=== PATIENT | male | born 1960 | race Caucasian/White ===

== ENCOUNTER 2019-03-25 10:10 | Day surgery (SDC) | payer OTHER, SELFPAY ==
[2019-03-18 14:23] VITALS: BMI 44.4
[2019-03-25] VITALS (10 sets, daily range): BP systolic 119–169; BP diastolic 50–85; PULSE 78–90; RESP 15–20; TEMP 36–36.8; O2SAT 91–96; BMI 46.1
--- NOTE | 2019-03-25 11:00 | PM.PREOP ---
Pre-operative Note Interval Note History & Physical reviewed/Exam performed by Physician: Yes Changes to H&P: No
--- NOTE | 2019-03-25 13:00 | PM.OP.1 ---
Operative Date/Time/Diagnoses Date of procedure: 03/25/19 Time of procedure: 15:03 Pre-op diagnosis: Impingement syndrome with partial-thickness rotator cuff tear right shoulder Subluxation and partial tearing of the biceps tendon right shoulder Post-op diagnosis: same Procedure & Clinicians Procedure: Arthroscopic subacromial decompression right shoulder Arthroscopic biceps tenotomy right shoulder Same procedure as scheduled: Yes Indications: The patient presents today for right shoulder arthroscopy. The planned procedure is subacromial decompression and biceps tenodesis versus tenotomy. Rotator cuff repair or other procedures may be performed as indicated by the intraoperative findings. The nature of the procedure including the risks and benefits, alternatives, postoperative course and expected outcome were discussed and all questions answered. Consent was obtained. Operative site confirmed and marked. Surgeon: Felipe Reis System Programmer: Clair Saez Anesthesia Type: General, Peripheral nerve block and Local Operative Notes Findings: Arthroscopic evaluation revealed some partial-thickness tearing on the articular side of the rotator cuff but no significant full-thickness tears that required repair. There was tearing and dislocation of the biceps tendon. A biceps tenotomy was performed. There is also some milder tearing of the anterior labrum which was debrided. The majority the labrum was intact and stable. There is just mild chondromalacia. There was some partial-thickness tearing of the superior border of the subscapularis tendon. The subacromial space was quite tight to begin the procedure was significant bursitis. A complete bursectomy in standard acromioplasty was performed which nicely decompressed the area. The AC joint was not prominent into the subacromial space. The subacromial space was well decompressed at the end of the procedure. Closure Type: primary Specimen(s): none sent Estimated Blood Loss (mL): 10 Blood products transfused: none Procedure in detail: The patient was taken the operative suite and placed under general anesthesia with a scalene block by Anesthesia. He was given prophylactic antibodies prior to surgery. The patient was then positioned in the lateral decubitus position on a beanbag and with an axillary roll. The arm was suspended with 10 pounds of weight. The acromion and coracoid as well as the expected portal sites were all marked. The shoulder was then injected with 20 mL of 1% lidocaine with epinephrine. The arm was then prepped and draped in usual sterile fashion. The joint was then filled with 20 mL of saline through the proposed posterior portal site. The posterior portal was then established and the scope placed bluntly into the glenohumeral joint. An anterior portal was then established from an outside in technique with a spinal needle. The glenohumeral joint was then inspected (see findings above). The scope was then switched to the subacromial space. A standard bursectomy and anterior/lateral chondroplasty was performed with a shaver and bur. The subacromial space was well decompressed. The arthroscopy was then completed and the shoulder drained. The portal sites were closed with interrupted 3-0 nylon suture. Subacromial space was filled with 15 mL of 0.5% ropivacaine and 4 of morphine. Sterile gauze dressings were then applied. The shoulder was placed into a sling. The patient tolerated the procedure well and was returned recovery room in good condition. Complications: none Post-operative Condition: stable Disposition: same day surgery Plan for aftercare: Patient will use a sling for comfort. May slowly progress activity as tolerated. Discharge to home. Follow-up in 2 weeks.
[2019-03-25] MEDS: MIDAZOLAM 2 MG/2 ML VIAL IV (13:15)
[2019-03-25] MEDS: LACTATED RINGERS 1,000 ML 42 ML IV (13:28)
--- NOTE | 2019-03-25 13:29 | SUR.PREOP ---
Block start time [1315] . Monitoring initiated and maintained throughout procedure. Oxygen and medications given per anesthesiologist instructions. Patient remained stable throughout procedure, no adverse reactions noted. Block end time [1324].
[2019-03-25] MEDS: CEFAZOLIN 2 GM/100 ML FROZ.PIGGY IV (13:44)
--- NOTE | 2019-03-25 14:18 | SUR.OPER ---
Lateral on padded OR bed with benjamin bag positioner, head on pillow, gel axillary roll in place, bottom leg bent with gel pad under knee to foot, upper leg straight and supported with pillows. Operative arm secured in shoulder positioning suspension device. non-operative arm secured on padded arm board. Safety belt at hip, tape over blanket securing lower legs.
[2019-03-25] MEDS: ROPIVACAINE 0.5% PF 5 MG/ML 20ML VIAL 10 ML INJ (14:27)
[2019-03-25] MEDS: SODIUM CHLORIDE IRRIG SOLUTION 3,000 ML, EPINEPHrine 1 MG IRR ×2 (14:32→14:43)
[2019-03-25] MEDS: OXYCODONE/ACETAMINOPHEN 5/325 TABLET 1 TAB PO ×2 (15:32→16:38)
[2019-03-25] MEDS: fentaNYL 100 MCG/2 ML INJ 50 MCG IV ×2 (15:47→16:00)
== END 2019-03-25 17:19 | disposition home or self-care (01) ==
PROVIDERS: PCP Family Medicine; Visit Provider Orthopaedic Surgery
PROC: (CPT 29805; principal; 2019-03-25 12:15)
DX: M75.41 Impingement syndrome of right shoulder (principal); S46.011A Strain of muscle(s) and tendon(s) of the rotator cuff of right shoulder, initial encounter; G89.18 Other acute postprocedural pain; W01.198A Fall on same level from slipping, tripping and stumbling with subsequent striking against other object, initial encounter; Y93.H3 Activity, building and construction; M94.211 Chondromalacia, right shoulder
CPT/HCPCS: 29823; 29826; 64415; J0171; J0690; J1100; J2250; J2405; J2704; J3010

== ENCOUNTER → 2019-10-12 14:02 | Outpatient (CLI) | payer OTHER, SELFPAY ==
[2019-10-13 16:08] LABS: COVID19 Sendout NOT DETECTED (Not Detect)
== END ==
PROVIDERS: PCP Family Medicine; Visit Provider Registered Nurse
DX: Z01.812 Encounter for preprocedural laboratory examination (principal)
CPT/HCPCS: 87635

== ENCOUNTER 2019-10-14 06:37 | Day surgery (SDC) | payer OTHER, SELFPAY ==
[2019-10-12 12:49] VITALS: BMI 43.6
[2019-10-14] VITALS (7 sets, daily range): BP systolic 122–157; BP diastolic 76–92; PULSE 78–93; RESP 15–20; TEMP 36.2–36.9; O2SAT 94–99; BMI 43.6
--- NOTE | 2019-10-14 06:54 | PM.PREOP ---
Pre-operative Note COVID-19 COVID-19 status: Negative Interval Note History & Physical reviewed/Exam performed by Physician: Yes Changes to H&P: No
--- NOTE | 2019-10-14 06:55 | PM.OP.1 ---
Operative Date/Time/Diagnoses Date of procedure: 10/14/19 Pre-op diagnosis: Impingement syndrome and partial-thickness rotator cuff tear left shoulder Post-op diagnosis: same Procedure & Clinicians Procedure: Arthroscopic subacromial decompression left shoulder Same procedure as scheduled: Yes Indications: The patient presents today for left shoulder arthroscopy with planned subacromial decompression and other procedures as indicated by the operative findings. The nature of the procedure including the risks and benefits, alternatives, postoperative course and expected outcome were discussed and all questions answered. Consent was obtained. Operative site confirmed and marked. Surgeon: Felipe Reis Assembly Line Machine Operator: Sav De Souza Anesthesia Type: General, Peripheral nerve block and Local Operative Notes Findings: Examination anesthesia was unremarkable. Arthroscopic evaluation of glenohumeral joint revealed mild chondromalacia. There was some inferior spurring off the humeral head. The biceps tendon was intact and appeared pristine. There was some tearing of the inferior labrum which was debrided. The anterior labrum appeared detached but this was primarily little redundant tissue. The labrum was not torn in this location and the biceps anchor was stable. There is no evidence of any significant articular sided rotator cuff tearing. Arthroscopic evaluation of the subacromial space revealed severe bursitis. There is moderate prominence of the anterior acromion with some spurring. A complete bursectomy in standard acromioplasty was performed. This nicely decompressed the space. There was some slight diffuse fraying of the rotator cuff but no evidence of any significant bursal sided rotator cuff tear. The distal clavicle was not prominent into the joint and the AC joint capsule was intact. Closure Type: primary Specimen(s): none sent Estimated Blood Loss (mL): 5 Blood products transfused: none Procedure in detail: The patient was taken the operative suite and placed under general anesthesia with a scalene block and given prophylactic antibodies prior to surgery. The patient was then positioned in the lateral decubitus position on a beanbag and with an axillary roll. The arm was suspended with 10 pounds of weight. The acromion and coracoid as well as the expected portal sites were all marked. The shoulder was then injected with 20 mL of 1% lidocaine with epinephrine. The arm was then prepped and draped in usual sterile fashion. The joint was then filled with 20 mL of saline through the proposed posterior portal site. The posterior portal was then established and the scope placed bluntly into the glenohumeral joint. An anterior portal was then established from an outside in technique with a spinal needle. The glenohumeral joint was then inspected (see findings above). The scope was then switched to the subacromial space. A standard bursectomy and anterior/lateral chondroplasty was performed with a shaver and bur. The subacromial space was well decompressed. The arthroscopy was then completed and the shoulder drained. The portal sites were closed with interrupted 3-0 nylon suture. Subacromial space was filled with 20 mL of 0.5% ropivacaine and 4 of morphine. Sterile gauze dressings were then applied. The shoulder was placed into a sling. The patient tolerated the procedure well and was returned recovery room in good condition. Complications: none Post-operative Condition: stable Disposition: same day surgery Plan for aftercare: Sling for comfort. May slowly progress shoulder activity as tolerated. May start physical therapy within 1 week.
[2019-10-14] MEDS: LACTATED RINGERS 1,000 ML 42 ML IV (07:38)
[2019-10-14] MEDS: CEFAZOLIN VIAL 3 GM in SODIUM CHLORIDE 0.9% 100 ML 200 ML IV (08:03)
[2019-10-14] MEDS: BUPIVACAINE 0.25% W/ EPI 30 ML VIAL INJ (08:37)
[2019-10-14] MEDS: SODIUM CHLORIDE IRRIG SOLUTION 3,000 ML, EPINEPHrine 1 MG IRR (08:44)
--- NOTE | 2019-10-14 10:42 | SUR.PHASEII ---
called, pt ready to go, dressing remained c/d/i. Pt left in stable condition.
== END 2019-10-14 10:30 | disposition home or self-care (01) ==
PROVIDERS: PCP Family Medicine; Referring Provider Orthopaedic Surgery; Visit Provider Orthopaedic Surgery
PROC: (CPT 29805; principal; 2019-10-14 07:45)
DX: S43.422A Sprain of left rotator cuff capsule, initial encounter (principal); S46.012A Strain of muscle(s) and tendon(s) of the rotator cuff of left shoulder, initial encounter; M19.90 Unspecified osteoarthritis, unspecified site; I10 Essential (primary) hypertension; E66.9 Obesity, unspecified; M75.52 Bursitis of left shoulder; Z68.41 Body mass index [BMI] 40.0-44.9, adult
CPT/HCPCS: 29823; 29826; J0171; J0690; J1100; J2250; J2405; J2704; J3010

== ENCOUNTER → 2020-01-07 10:36 | Outpatient (CLI) | payer OTHER, SELFPAY ==
--- NOTE | 2020-01-07 10:39 | DI.RAD.S_ITS ---
PROCEDURE: FL JOINT INJECTION LARGE RT INDICATIONS: Sprain of right rotator cuff capsule COMPARISON: None. TECHNIQUE: The indications, alternatives, benefits, risks, and complications of the procedure were explained to the patient. Written informed consent was obtained and placed in the chart. The patient was placed in an appropriate position on the fluoroscopy table, and a site was chosen for percutaneous access under fluoroscopic guidance. The site was prepped and draped in a sterile fashion. Local anesthetic was administered using a 1% lidocaine solution. A hypodermic or spinal needle was then used to access the symptomatic joint. Intra-articular location of the needle tip was confirmed by injecting a small amount of contrast, followed by steroid administration. The needle was then withdrawn, and a bandage applied to the puncture site. FINDINGS: Joint injected: Right shoulder joint, intra-articular injection Medications injected: 6 mL of 40 mg/mL Kenalog and 0.5% Ropivacaine mixture. Complications: None. IMPRESSION: Successful fluoroscopically guided administration of steroid and anaesthetic solution into the right shoulder joint. Dictated by: Carrington Perdomo M.D. on 01/07/2020 at 12:27 Approved by: Carrington Perdomo M.D. on 01/07/2020 at 12:28
== END ==
PROVIDERS: PCP Family Medicine; Referring Provider Orthopaedic Surgery; Visit Provider Orthopaedic Surgery
DX: S43.421A Sprain of right rotator cuff capsule, initial encounter (principal)
CPT/HCPCS: 20610; 77002

== ENCOUNTER → 2020-11-07 09:22 | Outpatient (CLI) | payer OTHER, SELFPAY ==
[2020-11-07 11:11] LABS: COVID19 -Nasal RAPID Negative (Negative)
== END ==
PROVIDERS: PCP Family Medicine; Visit Provider Physician Assistant
DX: Z01.812 Encounter for preprocedural laboratory examination (principal); Z20.822 Contact with and (suspected) exposure to COVID-19
CPT/HCPCS: 87635

== ENCOUNTER 2020-11-09 07:34 | Observation (INO) | payer OTHER, SELFPAY ==
[2020-10-31 07:25] VITALS: BMI 38.7
[2020-11-09] VITALS (13 sets, daily range): BP systolic 99–140; BP diastolic 54–91; PULSE 58–77; RESP 12–18; TEMP 35.8–37.4; O2SAT 93–100; BMI 38.7
--- NOTE | 2020-11-09 | DI.RAD.S_ITS ---
PROCEDURE: XR KNEE RT 1TO2V INDICATIONS: POST OP TOTAL RIGHT KNEE TECHNIQUE: 2 views of the knee were acquired. COMPARISON: None. FINDINGS: Bones: Postsurgical changes related to right total knee arthroplasty. There is expected alignment. The hardware appears intact. No acute fracture. Soft tissues: Small joint effusion and expected postsurgical soft tissue sequela. IMPRESSION: Expected alignment Dictated by: Shakir Stewart M.D. on 11/09/2020 at 12:33 Approved by: Shakir Stewart M.D. on 11/09/2020 at 12:34
[2020-11-09] MEDS: LACTATED RINGERS 1,000 ML 100 ML IV ×4 (08:12→23:24)
[2020-11-09] MEDS: ACETAMINOPHEN 325 MG TABLET 975 MG PO (08:18)
[2020-11-09] MEDS: CELECOXIB 200 MG CAPSULE PO (08:18)
[2020-11-09] MEDS: PREGABALIN 75 MG CAPSULE PO (08:19)
--- NOTE | 2020-11-09 08:21 | PM.PREOP ---
Pre-operative Note COVID-19 COVID-19 status: Negative Result date/Date tested (Pos, Neg/Pending): 11/07/20 Interval Note History & Physical reviewed/Exam performed by Physician: Yes Changes to H&P: No H&P completed within 30 days and has changed as indicated here:: No changes to H&P. Plan for right TKA.
[2020-11-09] MEDS: CEFAZOLIN 1 GM VIAL 2 GM IV ×2 (09:00→18:29)
[2020-11-09] MEDS: TRANEXAMIC ACID 1,000 MG VIAL 1000 MG INJ ×2 (09:05→10:30)
--- NOTE | 2020-11-09 09:20 | SUR.OPER ---
Supine on padded OR bed. Pillow under head, arms secured on padded armboards <90 degree abduction. Safety belt across torso. Non-operative leg secured with tape over blanket over lower leg, gel pad under left heel. Operative leg in control by the surgeon. Padded knee positioner roll bar used. Foam padded brace at thigh of operative leg.
[2020-11-09] MEDS: ROPIVACAINE 0.5% PF 5 MG/ML 20ML VIAL 60 ML INJ (09:29)
[2020-11-09] MEDS: MORPHINE 4 MG/ML INJ INJ (09:30)
[2020-11-09] MEDS: KETOROLAC 30 MG/ML VIAL IV (09:31)
[2020-11-09] MEDS: SODIUM CHLORIDE IRRIG SOLUTION 250 ML, POVIDONE-IODINE SPONGE STICKS 1 APPLIC IRR (09:31)
--- NOTE | 2020-11-09 10:40 | P.OP_ITS ---
Operative Date/Time/Diagnoses Date of procedure: 11/09/20 Time of procedure: 10:40 Pre-op diagnosis: right knee OA Post-op diagnosis: same Procedure & Clinicians Procedure: Right total knee arthroplasty Same procedure as scheduled: Yes Indications: Right knee osteoarthritis resistant to further conservative measures Surgeon: Rogerio Taveras Router Machine Operator: Sav De Souza Anesthesia Type: General and Spinal Operative Notes Findings: Right knee osteoarthritis with large osteophytes and [id number] articulation in the medial compartment Closure Type: primary Prosthetic devices, grafts, tissues, transplants, or devices: Flores [employer] Nephew Journey 2 size 8, right cruciate retaining femoral component Size 7, right Journey tibial base plate Size 7-8, right 9 mm thick Journey 2 CR polyethylene 35 mm oval Lenore 2 patellar button Estimated Blood Loss (mL): 50 Tourniquet time (min): 54 Procedure in detail: Patient was met in the preoperative holding area where the site and side of surgery marked by . He was then brought back to the ope rating room he received a spinal anesthetic he was then placed on the operating room table and induced under general anesthesia. A nonsterile tourniquet was then placed on the right thigh and the right lower extremity was then prepped and draped in normal sterile fashion. A surgical time-out was performed verifying site and side of surgery as well as the name of the patient. The right lower extremity was then exsanguinated exsanguinated using Esmarch the tourniquet was inflated 250 mmHg. A longitudinal incision over the right knee was made in the skin using 10. Blade. A new 10. Blade was then used to me elevate medial lateral flaps. Medial parapatellar arthrotomy was then performed Hoffa fat pad was then removed as well as the lateral meniscus the ACL remnant was also removed large osteophytes were then removed at this time as well a large medial peel was then performed and [place] line was marked. The entry site for the femoral drill and tibial drill were made respectively. Drill was then used into the femoral canal and tibial canal. Intramedullary joe was then placed inside the femur and the 5 degree cutting block the distal femoral cut was then pinned into place and cut the neutral slot. Then turned our attention to the tibial side intramedullary joe was then placed at the tibia and the out wet pour mixer was then used to place the jig was pinned into place and verified with a drop joe. Initial cut was made and then knee was brought into full extension knee was still a little tight in full extension with a 9 mm extension block so a further 2 mm were taken off the tibia. At this point the pins were then removed the gap camp counselor was then placed. Drill holes were then placed gap camp counselor was then removed and compared to the manual external rotators and guide. These holes matched up. The femur sized to size 8. The 5 in 1 cutting block was then placed on the distal femur and pinned in place and the cuts were then made sequentially. Trial size 8 CR femoral component was then placed and the notch was then cut. A size 7 tibial base plate was then placed with a 9 mm polyethylene knee was brought through range of motion in the tibial external rotation was marked using floating technique. At this point the patella was then freehand cut and sized to 35 mm thick polyethylene button this was then drilled for and patellar button was placed as knee was brought through range of motion was a little bit a lateral tilt of the patella however this may be just due to tourniquet and we will retest after tourniquet was down. At this point the components were then removed the tibial base plate was returned and the keel was then drilled and punched. Bony fragments were placed inside the tibial canal as was the femoral canal. Local anesthetic was then infiltrated in the periarticular soft tissues including the back of the knee. Pulse lavage was then used to thoroughly irrigate the cut surface of the femur tibia and patella. The surfaces were then dried. Cement was then mixed cement was then finger packed into the keel as well as the undersurface of the tibial base plate this was then malleted into place excess cement was removed. Stem was then finger packed on cut surface of the femur with exception of the posterior condylar cut cement was placed on the feet of the femoral component malleted into place excess cement was removed. A size 9 mm thick polyethylene trial was then placed knee was brought full extension and ankles held in internal rotation cement was then finger packed on the cut surface of the patella between the patellar pegs and the patella was then clamped into place excess cement was removed. The tourniquet was then let down at 54 minutes of time Betadine solution was then placed in the wound the cement was then allowed to fully cure once this had occurred pulse lavage was used to thoroughly irrigate the knee the knee was brought through final range of motion. The 9 mm thick polyethylene trial was then removed and a 9 mm thick size 7-8 right Journey 2 polyethylene was then selected and placed make sure the medial lateral tabs were well engaged the locking mechanism. The medial parapatellar arthrotomy was then closed using 1. Vicryl interrupted fashion followed by running Quill suture followed by 2 Vicryl interrupted fashion subcutaneous layer followed by a running 3-0 Stratafix in subcuticular layer followed by Dermabond and Aquacel dressing. Complications: none Post-operative Condition: stable Disposition: PACU Plan for aftercare: Aspirin 81 mg b.i.d. for 6 weeks for DVT prophylaxis, 24 hours postop antibiotics, weight-bearing as tolerated lower extremity.
[2020-11-09] MEDS: fentaNYL 100 MCG/2 ML INJ IV ×2 (11:16→11:24)
[2020-11-09] MEDS: OXYCODONE/ACETAMINOPHEN 5/325 TABLET 1 TAB PO (11:21)
[2020-11-09] MEDS: HYDROMORPHONE 2 MG INJ IV (11:53)
--- NOTE | 2020-11-09 12:48 | PC.ADMIT ---
[id number] Admission Note: The patient,Ton Noguera,60 y/o, was given written information regarding hospital policies, unit procedures and contact persons. Patient's smoking status: Never smoker. Vital Signs - 8 hr 11/09/20 07:57 11/09/20 10:58 11/09/20 11:02 Temperature 97 F L Pulse Rate 68 64 63 Respiratory Rate 14 12 12 Blood Pressure 139/82 130/69 134/91 H Pulse Oximetry 97 97 98 11/09/20 11:15 11/09/20 11:30 11/09/20 11:45 Temperature 99.3 F 99.3 F Pulse Rate 65 65 65 Respiratory Rate 16 16 16 Blood Pressure 128/70 122/70 120/70 Pulse Oximetry 98 97 97
--- NOTE | 2020-11-09 12:48 | PC.NURSE ---
Assess- Patient up to room around 1200, he was shivering down in recovery and when just getting to his room. This has resolved. VSS, he has been on RA, IS given and instructions on how to use. Patients sats are between 88-92, he knows to take deep breaths when this happens, we may have to put him on a low amount of oxygen nasal cannula. R.knee dressing is cdi with aquacel and lai wrap present. CMS wnl and ppx2. Patient is on IVF and he is now eating his lunch.
[2020-11-09] MEDS: IBUPROFEN 400 MG TABLET PO ×3 (13:55→21:23)
[2020-11-09] MEDS: ACETAMINOPHEN 325 MG TABLET 650 MG PO ×2 (14:14→21:24)
[2020-11-09] MEDS: OXYCODONE IR 5 MG TABLET PO ×2 (14:15→23:31)
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
[2020-11-09] MEDS: OXYCODONE IR 5 MG TABLET 10 MG PO (18:30)
--- NOTE | 2020-11-09 20:26 | PC.NURSE ---
JUAN PABLO Shift note. pt AO and receptive to care. Reporting tolerable pain at start of shift then RN Ashanti administered 10mg PO Oxycodone with ibuprofen at 1830 for 11/12 pain, reassessment of 08/13. Up 1PA FWW with PT at start of shift. Aquacel and TORITO wrap to RLE, + CMS with pulses to bilateral dorsalis pedis. LR infusing to L wrist PIV at 100/hr. Intermittent ice pack to right knee. in room at start of shift and has since left. Checking CBG ACHS 155 at 1630 but pt is non-insulin dependent. Denying nausea and tolerating an ADA diet.
[2020-11-09] MEDS: ATORVASTATIN 20 MG TABLET 40 MG PO (21:23)
[2020-11-09] MEDS: DOCUSATE 100 MG CAPSULE PO (21:24)
[2020-11-09] MEDS: ASPIRIN EC 81 MG TABLET PO (21:24)
[2020-11-09] MEDS: METFORMIN HCL 500 MG TABLET 1000 MG PO (21:24)
[2020-11-10] VITALS: BP 102/58; PULSE 69; RESP 18; TEMP 36.8; O2SAT 93
[2020-11-10] MEDS: IBUPROFEN 400 MG TABLET PO ×4 (00:49→12:18)
[2020-11-10] MEDS: CEFAZOLIN 1 GM VIAL 2 GM IV (02:39)
[2020-11-10] MEDS: HYDROMORPHONE 0.5 MG INJ 0.2 MG IV (02:41)
[2020-11-10 03:35] VITALS: BP 113/61; PULSE 69; RESP 15; TEMP 36.6; O2SAT 98
--- NOTE | 2020-11-10 03:40 | PC.NURSE ---
Patient is alert and oriented. Breath sounds CTA with RA sat of 93%. HRR. Denied nausea. BT present and is passing flatus. Denied dysuria, frequency or urgency with urination; getting out of bed to bathroom to use urinal. Is able to move self in bed and is up to bathroom with walker and 1 assist. Aquacel dressing to right knee intact and covered with lai wrap; CDI. Complained of 5/10 right knee pain as well as generalized, chronic pain and was medicated with Oxycodone at 2331 and then IV Dilaudid for breakthrough pain at 0241; declined ice pack. Has chronic, bilateral foot neuropathy but otherwise CMS is intact. Wearing bilateral calf SCD's. Fall risk score is high and bed alarm is activated.
[2020-11-10] MEDS: OXYCODONE IR 5 MG TABLET 10 MG PO ×3 (03:49→12:19)
[2020-11-10 04:43] LABS: Hemoglobin 11.3 g/dL (13.5-17.5)
[2020-11-10 07:35] VITALS: BP 125/70; PULSE 65; RESP 16; TEMP 36.8; O2SAT 98
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
[2020-11-10] MEDS: lisinopriL 20 MG TABLET PO (09:23)
[2020-11-10] MEDS: METFORMIN HCL 500 MG TABLET 1000 MG PO (09:23)
[2020-11-10] MEDS: DOCUSATE 100 MG CAPSULE PO (09:23)
[2020-11-10] MEDS: ACETAMINOPHEN 325 MG TABLET 650 MG PO ×2 (09:24→12:18)
[2020-11-10] MEDS: ASPIRIN EC 81 MG TABLET PO (09:24)
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
--- NOTE | 2020-11-10 10:41 | PT.IPTN ---
Current Diagnoses Unilateral primary osteoarthritis, right knee (11/09/20) Surgery Performed Operation Date: 11/09/20 08:45 Actual Procedures p Total Knee Arthroplasty(Right) - Rogerio Taveras MD Physical Therapy Treatment Note M2 PT-IP Current Condition Start: 11/09/20 16:33 Freq: NEEDED Status: Active Protocol: Document 11/09/20 15:10 AB (Rec: 11/09/20 16:45 AB [id number]) Physical Therapy Current Condition Current Condition Evaluation Date 11/09/20 Treatment Diagnosis s/p R TKA; difficulty in walking Onset Date 11/09/20 Weight Bearing Status Weight Bearing Status Weight Bear as Tolerated Allowed Weight Bearing Amount (enter % RLE WBAT or #) (%) M3 PT-IP Subjective Start: 11/09/20 16:33 Freq: NEEDED Status: Active Protocol: Document 11/10/20 10:00 CLB (Rec: 11/10/20 12:21 CLB [id number]) Subjective Physical Therapy Visit Type Type Treatment Note Visit Start Time 10:00 Visit Stop Time 10:41 Total Visit Minutes 41 Notes present for CG training. Number of SURGICAL SERVICES ASST Visits 1 Physical Therapy Visit Comments Patient Comments pt is agreeable to do PT Therapy Pain Assessment Pain When Pain Assessed At Rest Pain Present Pain Present Pain Reported Location right knee Intensity 4 Scale Used Numeric (0 - 10) Pain Management Techniques Modification of Treatment,Re- positioning,Timing of Activity with Medications M4 PT-IP Mobility and Gait Start: 11/09/20 16:33 Freq: NEEDED Status: Active Protocol: Document 11/10/20 10:00 CLB (Rec: 11/10/20 12:21 CLB [id number]) PT-Bed Mobility Assessment Supine to Sit Supine to Sit Standby Assistance Sit to Supine Sit to Supine Standby Assistance PT-Transfer Assessment Sit to and From Stand Sit to and from Stand Standby Assistance,1 Person Assistance,Use of Upper Extremities Equipment Transfer Assistive Device Gait Belt,Front Wheeled Walker Orthotic/Prosthetic Devices or Brace: No Transfers Transfer Destination Bed,Chair Transfer Technique ambulated using FWW Transfer Ability Level of Assist Standby Assistance,1 Person Assistance,Use of Upper Extremities Comments Mobility Comments Pt donned GB after demonstration. Pt also stated she has purchased a shower chair. Pt performed HS with scoot and hold x3. Pt then ambulated to therapy stairs climbing three steps x2 with SPC and providing CGA. Pt then ambulated back to room. Pt able to sit on EOB and get to supine SBA. Pt performed remainder of exercises, pt transferred back to chair SBA. Gait Assessment Gait Gait Assistance Required: Standby Assistance,1 Person Assist Distance (Feet) 250 Able to Maintain Weight Bearing Status Yes During Gait Assistive Devices Assistive Device Gait Belt,Front Wheeled Walker Orthotic/Prosthetic Devices or Brace: No Gait Deviations General Gait Pattern Antalgic,Decreased Stride Length,Decreased Feet Clearance Factors Limiting Gait Function Factors Limiting Gait Function Decreased Activity Tolerance, Decreased Strength,Limited Range of Motion,Pain Comments Gait Comments Pt ambulated w/o knee buckling , pt had good stride length and foot clearance. Stair Climbing Assessment Evaluation Level of Assist On Stairs Contact Guard Assistance,1 Person Assistance Devices Stair Climbing Assistive Devices Straight Cane Technique/Endurance Stair Climbing Direction Ascend and Descend Stair Climbing Technique Step to Step Number of Steps Climbed 3 Stair Climbing Set # Repetitions (reps) 2 M5 PT-IP Objective Assessments Start: 11/09/20 16:33 Freq: NEEDED Status: Active Protocol: Document 11/09/20 15:10 AB (Rec: 11/09/20 16:45 AB [id number]) Orientation Orientation/Cognition Level of Alertness Alert Orientation Name,Age,Birthday,Month,Date, Year,Day of Week,Place, Situation Language Function Ability No Deficits Noted Safety Awareness Understands Safety Issues Memory Description No Deficits Noted Gross Range of Motion Lower Extremity ROM Impairments R knee flexion: ~ 70 deg Strength Lower Extremity Strength Assessment Right Impaired Hip 4+/5 Knee 3+/5 Coordination Assessment Gross Coordination Gross Coordination WNL Sensation Assessment Sensation Gross Sensation Right LE Impaired,Left LE Impaired Light Touch Impaired Proprioception (Position) Impaired Sensation Description Numbness Comments Sensation Comments bilateral feet numbness: chronic per pt Muscle Tone Muscle Tone WNL Yes M6 PT-IP Treatment Start: 11/09/20 16:33 Freq: NEEDED Status: Active Protocol: Document 11/10/20 10:00 CLB (Rec: 11/10/20 12:21 CLB [id number]) Physical Therapy Treatment Exercises Exercises Ankle Pumps,Quad Sets,Heel Slides,Straight Leg Raises, Short Arc Quads,Passive Knee Extension Hang Education Education Provided Precautions,Weight Bearing Status,Post-Op Packet,Safety M7 PT-IP Assessment and Plan Start: 11/09/20 16:33 Freq: NEEDED Status: Active Protocol: Document 11/10/20 10:00 CLB (Rec: 11/10/20 12:21 CLB [id number]) PT Summary Assessment and Plan Potential Rehabilitation Potential Good Status of Condition at Evaluation Stable Summary Progress Towards Goals Progressing Toward Goals Assessment Summary Pt requires CGA for stairs and is able to assist pt into home. Pt is SBA for all other mobility with good safety awareness and pain control. Pt can d/c home with to assist when medically stable. Goals Bed Mobility Goal Independent Transfer Goal Independent,Front Wheeled Walker Gait Goal Independent,Front Wheel Walker Gait Distance 200 Other Goals up/down 5 steps SPC/MANAGER EXPRESS CGA Days to Meet Goals 5 Frequency of Treatment Frequency Of Treatment Twice a Day Treatment Plan Physical Therapy Treatment Plan Bed Mobility Training,Transfer Training,Gait Training, Therapeutic Exercise,Balance Retraining,Post Op Education, Discharge Planning,Hot or Cold Pack,Neuromuscular Re-ed, Coordination Retraining,Manual Therapy Precautions Other Precautions RLE WBAT Recommendations To Nursing Amount of Assist Needed 1 Person Assist Discharge Recommendations PT Discharge Recommendations Home with Assistance, Outpatient PT Transportation Needs at Discharge Private Vehicle
--- NOTE | 2020-11-10 13:34 | CM.IDA ---
Initial DCP Assessment Note Pt is a 60 yo male, resident of [place], now POD#1 from Total Knee Arthroplasty(Right) - Rogerio Taveras MD PCP: DC Payer: L+I Reviewed chart, pt discussed in multidisciplinary rounds this morning. Therapy has cleared pt for return home w/spouse to assist and pt has planned for home, DC order from Ortho has already been initiated this morning. No needs expected from DC planning team although will remain available in case this changes today. MARCUS Jorge
--- NOTE | 2020-11-10 14:17 | PC.NURSE ---
Discharge: Pt feels ready for d/c. Is having more pain now then this am, explained he had an epidural and this will wear off over the next day and to expect more pain during that time. utilize the acetominophen and ibuprofen as instructed as well as the pain medication. Pt also reported no one is answering his call light. His call light was not alarming. Spouse came out into [facility] for help. Was trying to use bed call light which isnt hooked up. Instructed global vp creative + content marketing light use. Yulisa from [employer] happened to be here and he will look at the light later. Pt is voiding w/out problems. Tolerates diet w/out problems. Seen by PT and given their final instructions. Reviewed d/c packet. Rx given to spouse. Questions answered. Pt d/c to home via auto w/spouse.
== END 2020-11-10 12:50 | disposition home or self-care (01) ==
LOC: OR 07:34 → AC 11-10 08:59
PROVIDERS: Admitting Provider Orthopaedic Surgery Adult Reconstructive Orthopaedic Surgery; Referring Provider Orthopaedic Surgery Adult Reconstructive Orthopaedic Surgery; Visit Provider Orthopaedic Surgery Adult Reconstructive Orthopaedic Surgery
PROC: 0SRC0JZ Replacement of Right Knee Joint with Synthetic Substitute, Open Approach (ICD-10-PCS; CPT 27447; principal; 2020-11-09 08:45)
DX: M17.11 Unilateral primary osteoarthritis, right knee (principal); E11.9 Type 2 diabetes mellitus without complications; E66.9 Obesity, unspecified; G47.33 Obstructive sleep apnea (adult) (pediatric); Z79.84 Long term (current) use of oral hypoglycemic drugs; Z68.36 Body mass index [BMI] 36.0-36.9, adult
CPT/HCPCS: 27447; 36415; 73560; 82962; 85014; 85018; 97110; 97116; 97161; 97530; C1776; G0378; J0690; J1100; J1170; J1885; J2250; J2270; J2274; J2405; J2704; J3010

== ENCOUNTER → 2021-07-10 09:44 | Outpatient (CLI) | payer OTHER, SELFPAY ==
[2020-11-09 13:58] VITALS: BMI 38.7
[2021-07-10 14:49] LABS: COVID19 -Nasal RAPID Negative (Negative)
== END ==
PROVIDERS: Referring Provider Orthopaedic Surgery; Visit Provider Family Medicine Sleep Medicine
DX: Z20.822 Contact with and (suspected) exposure to COVID-19 (principal)
CPT/HCPCS: 87635; C9803

== ENCOUNTER 2021-07-11 12:10 | Day surgery (SDC) | payer OTHER, SELFPAY ==
[2020-11-09 13:58] VITALS: BMI 38.7
[2021-05-23 13:35] VITALS: BMI 38.5
[2021-07-11] VITALS (24 sets, daily range): BP systolic 131–160; BP diastolic 51–79; PULSE 69–110; RESP 15–19; TEMP 36.3–37.8; O2SAT 90–100; BMI 40.0
--- NOTE | 2021-07-11 06:00 | DI.RAD.S_ITS ---
PROCEDURE: XR KNEE LT 1TO2V INDICATIONS: TKA TECHNIQUE: Two views of the knee acquired. COMPARISON: [facility], CR, XR KNEE 4+ VIEWS LEFT, 03/27/2021, 8:56. FINDINGS: Bones: Patient is status post left total knee arthroplasty. Hardware components are in expected positions. Visualized bony structures are intact. Soft tissues: Overlying postoperative changes are noted. IMPRESSION: Status post left knee arthroplasty with expected postoperative findings. Dictated by: Lucian Le M.D. on 07/11/2021 at 22:35 Approved by: Lucian Le M.D. on 07/11/2021 at 22:35
[2021-07-11] MEDS: ACETAMINOPHEN 325 MG TABLET 975 MG PO (13:11)
[2021-07-11] MEDS: LACTATED RINGERS 1,000 ML 42 ML IV ×3 (13:11→19:58)
[2021-07-11] MEDS: PREGABALIN 75 MG CAPSULE PO (13:11)
[2021-07-11] MEDS: CELECOXIB 200 MG CAPSULE PO (13:11)
[2021-07-11] MEDS: VANCOMYCIN 1,000 MG/200 ML PIGGYBACK 200 MG IV (13:58)
--- NOTE | 2021-07-11 14:27 | SUR.OPER ---
Supine on padded OR bed. Pillow under head, arms secured on padded armboards <90 degree abduction. Safety belt across torso. Non-operative leg secured with tape over blanket over lower leg. Operative leg secured in DeMayo/Simone/Nathe positioner. Foam padded brace at thigh of operative leg.
--- NOTE | 2021-07-11 14:30 | PM.PREOP ---
Pre-operative Note COVID-19 COVID-19 status: Negative Criteria for continued procedure: Continuing or worsening of significant or severe pain Interval Note History & Physical reviewed/Exam performed by Physician: Yes Changes to H&P: No
[2021-07-11] MEDS: TRANEXAMIC ACID 1,000 MG VIAL 2000 MG INJ ×2 (15:57→17:45)
[2021-07-11] MEDS: CEFAZOLIN 2 GM/20 ML SYRINGE IV ×2 (15:57→21:39)
[2021-07-11] MEDS: SODIUM CHLORIDE IRRIG SOLUTION 250 ML, POVIDONE-IODINE SPONGE STICKS 1 APPLIC IRR (16:10)
[2021-07-11] MEDS: BUPIVACAINE LIPOSOME 266 MG/20 ML VIAL INJ (16:10)
[2021-07-11] MEDS: BUPIVACAINE 0.25% (PF) 60 ML, EPINEPHrine 0.3 MG INJ (16:14)
[2021-07-11] MEDS: HYDROMORPHONE 2 MG INJ IV ×9 (18:32→19:28)
[2021-07-11] MEDS: MEPERIDINE 50 MG/ML INJ 12.5 MG IV (18:33)
[2021-07-11] MEDS: fentaNYL 250 MCG/5 ML INJ IV ×8 (18:41→19:30)
[2021-07-11] MEDS: OXYCODONE IR 5 MG TABLET PO ×2 (19:07→19:46)
[2021-07-11] MEDS: ACETAMINOPHEN IV 1,000 MG/100 ML VIAL 400 MG IV (19:36)
--- NOTE | 2021-07-11 20:00 | SUR.PHASEI ---
Pt received a total of 2500 ml of LR from OR and in PACU.
--- NOTE | 2021-07-11 20:09 | PM.OP.1 ---
Operative Date/Time/Diagnoses Date of procedure: 07/11/21 Time of procedure: 15:50 Pre-op diagnosis: Severe left knee OA Post-op diagnosis: same Procedure & Clinicians Procedure: Left total knee arthroplasty Same procedure as scheduled: Yes Indications: The patient has had progressively worsening left knee pain with radiographic changes consistent with arthritis. Non-operative management has failed and the patient has requested total knee replacement. The risks, benefits and alternatives to surgery were discussed with the patient prior to proceeding. Risks discussed included, but were not limited to, failure to relieve pain, stiffness, infection, nerve damage, deep venous thrombosis, pulmonary embolism, stroke, coma, heart attack, permanent paralysis and , as well as the potential need for eventual revision of the prosthetic. Surgeon: Raven Flores Precision Crop Manager: Lida Mcgovern Anesthesia Type: General Operative Notes Closure Type: primary Specimen(s): none sent Prosthetic devices, grafts, tissues, transplants, or devices: Flores and Nephew Journey BCS 2 size 8 femur, size 7 tibia, 9 mm poly, 35 mm oval patella Applied: drain(s) Estimated Blood Loss (mL): 250 Blood products transfused: none Tourniquet time (min): 100 Procedure in detail: The patient was seen in the pre-operative area, where the patient identified the left knee as the operative site and this was marked with my initials. The patient received pre-operative antibiotics, and was taken to the operating room and placed on the operative table in the supine position. After satisfactory anesthesia, a radio time sales supervisor out was performed. The left leg was encircled with a tourniquet about the proximal thigh, and the leg was prepared from the toes to the tourniquet with ChloroPrep in the usual fashion and draped through sterile drapes. The leg was elevated and exsanguinated with Eschmark bandage and the tourniquet inflated to [250] mmHg pressure. The knee was approached through an approximately 18 cm incision centered over the patella and carried into the knee through a medial parapatellar arthrotomy. A portion of the medial and lateral meniscus was resected. Soft tissue was carefully mobilized around the patella the patella was measured with a caliper. Bone was resected from the patella and the patellar height was reconstituted with up an appropriate sized patellar component. A cover was then placed on the patella. A small amount of additional medial and lateral meniscus was resected. The distal femur was cut at 5?. A [+2] cut was used. It looked like an appropriate distal femoral cut and the cut was made without difficulty. An extramedullary guide was used for the tibial cut. 10 mm was resected off the least affected side.The tibia was prepared. The rotation was assessed. The patient was placed in extension residual medial and lateral meniscus as well as any residual bone was carefully resected. 4mm additional tibia was resected. Hemostasis was achieved especially posteriorly. Additional local was injected into the posterior capsule. The extension gap was assessed and additional releases for gap balancing were performed as necessary. It was checked with the gap staff radiographer. The femoral component was trial was placed and the notch was finished. The rotation was assessed and the appropriate size femoral guide was placed on the distal femur and finishing cuts were made. There was no evidence of notching. The anterior, posterior and chamfer cuts were then made. The posterior osteophytes and soft tissues were then removed. The posterior capsule was injected with part of a mixture of 60 ml 0.25% Marcaine mixed with 20 ml Exparel for post operative pain control. The remainder of this mixture was injected into the capsule and subcutaneous tissues during cement curing.The tibial and femoral components were then placed and the knee placed through a range of motion. Range of motion was [0-130], with good stability throughout the range. The trials were then removed, and the tibia was finished. The bone was prepared with pulsatile lavage, and dried with a sponge. Cement was applied and the final prosthetics placed. Excess cement was removed during and after cement curing. A brief Betadine soak was performed. After confirming there was no extruded cement posteriorly, the final tibial insert was placed. The knee was copiously irrigated and the tourniquet deflated. Hemostasis was obtained with the Bovie. A drain was placed and brought out superolaterally. The capsule was closed with interrupted nonabsorbable suture. The subcutaneous layer was closed with barbed sutures, and the skin with a running 3-0 V-Lock suture and Surgical glue. An Aquacel Ag dressing was applied and the patient was taken to recovery having tolerated the procedure well. Complications: none Post-operative Condition: stable Disposition: Acute Care Plan for aftercare: The patient will be maintained on a standard total knee replacement protocol with weight bearing as tolerated. The patient will receive aspirin and sequential compression devices for DVT prophylaxis. The patient will be discharged home when safe for the home environment.
[2021-07-11] MEDS: LACTATED RINGERS 1,000 ML 100 ML IV (21:41)
[2021-07-11] MEDS: ACETAMINOPHEN 325 MG TABLET 650 MG PO (21:41)
[2021-07-11] MEDS: ATORVASTATIN 20 MG TABLET 30 MG PO (21:42)
[2021-07-11] MEDS: ASPIRIN EC 81 MG TABLET PO (21:43)
[2021-07-11] MEDS: DOCUSATE 100 MG CAPSULE PO (21:43)
[2021-07-11] MEDS: HYDROCODONE/ACET 5/325 TABLET 1 TAB PO (21:43)
[2021-07-11] MEDS: IBUPROFEN 400 MG TABLET PO (21:43)
[2021-07-11] MEDS: METFORMIN HCL 500 MG TABLET 1000 MG PO (21:44)
[2021-07-11] MEDS: INDOMETHACIN 25 MG CAPSULE 75 MG PO (21:44)
[2021-07-12] MEDS: IBUPROFEN 400 MG TABLET PO ×3 (02:57→07:44)
[2021-07-12] MEDS: OXYCODONE IR 5 MG TABLET PO ×2 (02:58→05:19)
[2021-07-12 03:18] VITALS: BP 118/61; PULSE 84; RESP 18; TEMP 37.1; O2SAT 95
[2021-07-12 05:05] LABS: Hematocrit 34.1 % (41-53); Hemoglobin 11.3 g/dL (13.5-17.5)
[2021-07-12] MEDS: CEFAZOLIN 2 GM/20 ML SYRINGE IV (05:17)
[2021-07-12] MEDS: ASPIRIN EC 81 MG TABLET PO (07:43)
[2021-07-12] MEDS: HYDROCODONE/ACET 5/325 TABLET 1 TAB PO (07:43)
[2021-07-12] MEDS: DOCUSATE 100 MG CAPSULE PO (07:44)
[2021-07-12] MEDS: ACETAMINOPHEN 325 MG TABLET 650 MG PO (07:44)
[2021-07-12] MEDS: METFORMIN HCL 500 MG TABLET 1000 MG PO (07:45)
[2021-07-12] MEDS: INDOMETHACIN 25 MG CAPSULE 75 MG PO (07:46)
[2021-07-12] MEDS: lisinopriL 20 MG TABLET PO (07:50)
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
[2021-07-12 09:09] VITALS: BP 110/61; PULSE 86; RESP 18; TEMP 36.9; O2SAT 93
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
[2021-07-12] MEDS: OXYCODONE IR 10 MG TABLET PO (10:27)
== END 2021-07-12 11:12 | disposition home or self-care (01) ==
LOC: OR 12:11 → AC 12:12
PROVIDERS: PCP Family Medicine; Referring Provider Family Medicine; Visit Provider Orthopaedic Surgery
PROC: 0SRD0JZ Replacement of Left Knee Joint with Synthetic Substitute, Open Approach (ICD-10-PCS; CPT 27447; principal; 2021-07-11 14:15)
DX: M17.12 Unilateral primary osteoarthritis, left knee (principal); E11.9 Type 2 diabetes mellitus without complications; Z79.84 Long term (current) use of oral hypoglycemic drugs
CPT/HCPCS: 27447; 36415; 73560; 85014; 85018; 97161; 97530; C1776; C1713; C9290; J0131; J0171; J0690; J1100; J1170; J2175; J2250; J2704; J3010